=== PATIENT | male | born 1980 | race Caucasian/White ===

== ENCOUNTER 2018-10-07 16:20 | Emergency (ER) | payer SELFPAY ==
[~2018-10-07] VITALS: Ht 175.3 cm; Wt 77.1 kg
[2018-10-07 16:20] VITALS: BP 132/71
--- NOTE | 2018-10-07 17:50 | NUR ---
CALLED IN THE WAITING ROOM, PATIENT IS NOT AROUND.
--- NOTE | 2018-10-07 18:02 | NUR ---
CALLING PATIENT FROM THE WAITING ROOM, APPEARS PATIENT HAVE LEFT WITHOUT BEING SEEN BY A PHYSICIAN.
== END 2018-10-07 18:05 | disposition left against medical advice (07) ==
LOC: ER 16:25
DX: Z53.21 Procedure and treatment not carried out due to patient leaving prior to being seen by health care provider (principal); L03.114 Cellulitis of left upper limb; H92.03 Otalgia, bilateral